=== PATIENT | male | born 1975 | race Two or more races ===

== ENCOUNTER 2024-12-30 13:52 | Outpatient (AMB) | payer BC, MEDICAID, SELFPAY ==
[2024-12-30 14:05] VITALS: BP 127/85; PULSE 73; RESP 19; TEMP 36.6; O2SAT 94; BMI 41.3
--- NOTE | 2024-12-30 14:05 | ORTHONT_ITS ---
Vital signs 12/30/24 14:05 Height 1.68 m Height Method Stated Weight 116.318 kg Weight Measurement Method Standing Scale BMI 41.3 BP 127/85 H Blood Pressure Source Automatic Cuff Blood Pressure Location Right Upper Arm Position Sitting Respiration 19 Pulse 73 Pulse Source Monitor Temp 97.8 F Temp Source Temporal Artery Scan Pulse Oximetry (%) 94 L Oxygen Delivery Method Room Air Med/Allergies Allergies & Medications Allergies No Known Allergies Allergy (Verified 12/30/24 14:06) Medication Reconciliation atorvastatin 20 mg tablet 20 mg PO DAILY 03/19/21 [History Confirmed 12/30/24] lisinopril 20 mg-hydrochlorothiazide 12.5 mg tablet 1 tab PO DAILY 03/19/21 [History Confirmed 12/30/24] metformin 500 mg tablet 500 mg PO DAILY 03/19/21 [History Confirmed 12/30/24] Exam Exam Breathing is nonlabored. Patient has a normal mood and affect. Bilateral extremities were evaluated and demonstrates sensation intact to light touch. Palpable pedal pulses are present. No significant edema is present. Bilateral hips were examined. The patient has no pain with log roll of the hips. Internal rotation to 30 degrees and external rotation to 30 degrees is painless. Negative FADIR. Left knee was examined today. The left knee is in reasonable alignment. Range of motion from 0-120 degrees. Knee is stable to varus and valgus as well as AP translation with <5mm. Patient has a negative McMurrays. There is no pain with patellofemoral compression and no crepitus noted. The knee is nontender to palpation. The right knee was also examined. The right knee is in varus alignment. Range of motion from 0-115 degrees. Knee is stable to varus and valgus as well as AP translation with <5mm. Patient has a negative McMurrays. There is no pain with patellofemoral compression and no crepitus noted. The knee is tender to palpation medially. An MRI from [facility] was reviewed by me today. This demonstrates severe degeneration of the medial compartment as well as degenerative changes of the meniscus Assessment and Plan Problem List (1) Arthritis of right knee: Status: Acute Plan: Patient is a pleasant 49-year-old male with right knee pain and right knee arthritis. We will need weightbearing x-rays as we only have an MRI. We have discussed different treatment options depending on what that shows. 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 Intake Visit Data Collection New Patient or Established: New Patient not seen in past 3 years at [facility] (considered New) Reason for Visit:: right knee pain Seen by Clinical Staff ONLY (RN/MA): No Verbal consent obtained for Telemed visit?: No Hat And Cap Drying Room Attendant Required: No PCP or OBGYN visit in last 3 months: Yes Hx Now: No Do You Feel Safe at Home: Yes Authorities Contacted: N/A Questionairres Past Medical History Past Medical History Have you ever been diagnosed with any of the following: Neurological Problems Cerebrovascular Accident (CVA): No Transient Ischemic Attacks (TIA): No Dementia: No Brain Tumor: No Meningitis: No Seizures: No Epilepsy: No Multiple Sclerosis: No Cerebral Palsy: No Guillain-[place] Syndrome: No Spina Bifida: No Paralysis: No Peripheral Neuropathy: No Gallego's Palsy: No Migraine: No Head Trauma: No Traumatic Brain Injury: No Cardiology Problems Myocardial Infarction: No Cardiac Arrhythmia: No Heart Murmur: No Coronary Artery Disease: No Hypercholesterolemia: Yes Congestive Heart Failure: No Valvular Heart Disease: No Cardiomyopathy: No Edema: No Pericarditis: No Cellulitis: No Deep Vein Thrombosis: No Hypertension: Yes Hypotension: No Varicose Veins: Yes (RIGHT LEG VARICOSE VEINS) Respiratory Problems Chronic Obstructive Pulmonary Disease (COPD): No Asthma: No Bronchitis: No Emphysema: No Pneumonia: No Pulmonary Fibrosis: No Tuberculosis: No Pulmonary Embolism: No Pulmonary Edema: No Sleep Apnea: No Stomache/Intestinal Problems Hepatitis: No Cirrhosis: No Pancreatitis: No Celiac Disease: No Gall Bladder Disease: No Gastrointestinal Bleed: No Esophageal Varices: No Delgado's Esophagus: No Colitis: No Ulcerative Colitis: No Diverticulitis: No Diverticulosis: No Ulcer: No Irritable Bowel: Yes (2018) Crohn's Disease: No Obstructive Bowel: No Hiatal Hernia: Yes (umbilical hernia 2009-repaired) Hemorrhoids: No Gastroesophageal Reflux Disease: Yes Obesity: Yes Genital/Urinary Problems Renal Disease: No Kidney Stones: No Polycystic Kidney Disease: No Neurogenic Bladder: No Inguinal Hernia: No Dialysis: No Benign Prostatic Hyperplasia: No Reproductive Problems Testicular Cancer: No Musculoskeletal Problems Rheumatoid Arthritis: Yes (SINCE AGE 14) Osteoporosis: No Degenerative Disk Disease: No Gout: Yes Scoliosis: No Carpal Tunnel Syndrome: No Fibromyalgia: No Fractures: No Degenerative Joint Disease: No Osteomyelitis: Yes (X 30 YEARS AGO) Poliovirus: No Head,Eye,Nose,Throat Problems Cataracts: No Glaucoma: No Blind: No Retinal Detachment: No Macular Degeneration: No Chronic Ear Infections: No Deafness: No Eye Prosthesis: No Endocrine Problems Diabetes Mellitus Type 1: No Diabetes Mellitus Type 2: Yes (TAKES PO MED TYPE II) Hypoglycemia: No [place]'s Syndrome: No Andreas's Disease: No Hyperthyroidism: No Hypothyroidism: No Parathyroid Disease: No Pituitary Disease: No Systemic Lupus Erythematosus: No Syndrome of Inappropriate Antidiuretic Hormone: No Adrenal Disease: No Graves' Disease: No Psychologic Problems Schizophrenia: No Depression: No Anxiety: No Behavior Problems: No Self-Mutilation: No Attention Deficit Disorder: No Attention Deficit Hyperactivity Disorder: No Post Traumatic Stress Disorder: No Other Problems Hospitalization: No Down Syndrome: No Autism: No Developmental Delay: No Shingles: No Falls: Yes (DEC 20 2020 FELL IN YARD OFF THE LADDER) Blood Transfusions: No Blood Transfusion Reaction: No Anesthesia Reactions: No Organ Transplant: No Chemotherapy: No MRSA: No VRSA: No Vancomycin-Resistant Enterococci: No Human Immunodeficiency Virus (HIV): No Chicken Pox: No Measles: No Mumps: No Rubella (Lao Measles): No Pertussis: No Cancer: No Surgical History Carotid Endarterectomy: No Valve Replacement: No Pacemaker: No Thyroidectomy: No Subjective Visit Visit for: follow up visit and knee Immunization / Flu Flu Vaccine in the Last 12 Months: No Flu Vaccine Exclusion Criteria: No Exclusion Criteria History of Present Illness Chief complaint: right knee pain Date of injury / onset of symptoms: october 2024 Ignacio is a pleasant 49-year-old male with a prior arthroscopic meniscectomy [address] Garcia. He had a recent twisting injury in October and this now. The right knee is been bothering him particular in the medial aspect of the knee. Is some difficulty particularly at the end of the day. He has had prior injections in the past but it has been a while. 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
== END 2024-12-30 14:43 | disposition home or self-care (01) ==
PROVIDERS: PCP Nurse Practitioner Family; Referring Provider Nurse Practitioner Family; Supervising Provider Orthopaedic Surgery Adult Reconstructive Orthopaedic Surgery; Visit Provider Orthopaedic Surgery Adult Reconstructive Orthopaedic Surgery
DX: M17.11 Unilateral primary osteoarthritis, right knee (principal); M25.561 Pain in right knee; I10 Essential (primary) hypertension; E78.00 Pure hypercholesterolemia, unspecified; E11.9 Type 2 diabetes mellitus without complications; K21.9 Gastro-esophageal reflux disease without esophagitis
CPT/HCPCS: 99203; G0463

== ENCOUNTER → 2024-12-30 | Outpatient (CLI) | payer BC, MEDICAID, SELFPAY ==
--- NOTE | 2024-12-30 15:43 | XR_ITS ---
Examination: Right knee 4 views Technique: AP oblique lateral axial right knee 4 views Exam date and time: 02/27/2025 1626 hrs. Indications: Right knee pain osteoarthritis 3 years. Findings: Moderate to advanced tricompartment osteoarthritis, including medial and patellofemoral joints No fracture No patellar dislocation Impression: Moderate to advanced tricompartment osteoarthritis, including advanced narrowing medial and patellofemoral joints
== END | disposition home or self-care (01) ==
PROVIDERS: PCP Orthopaedic Surgery Adult Reconstructive Orthopaedic Surgery; Referring Provider Orthopaedic Surgery Adult Reconstructive Orthopaedic Surgery; Visit Provider Orthopaedic Surgery Adult Reconstructive Orthopaedic Surgery
DX: M17.11 Unilateral primary osteoarthritis, right knee (principal); M25.861 Other specified joint disorders, right knee
CPT/HCPCS: 73564

== ENCOUNTER 2025-01-12 14:36 | Outpatient (AMB) | payer BC, MEDICAID, SELFPAY ==
--- NOTE | 2025-01-12 14:29 | PD.ORTHTELE ---
Med/Allergies Allergies & Medications Allergies No Known Allergies Allergy (Verified 01/12/25 14:29) Medication Reconciliation atorvastatin 20 mg tablet 20 mg PO DAILY 03/19/21 [History Confirmed 01/12/25] lisinopril 20 mg-hydrochlorothiazide 12.5 mg tablet 1 tab PO DAILY 03/19/21 [History Confirmed 01/12/25] metformin 500 mg tablet 500 mg PO DAILY 03/19/21 [History Confirmed 01/12/25] Subjective Visit Visit for: follow up visit and x-rays Immunization / Flu Flu Vaccine in the Last 12 Months: No Flu Vaccine Exclusion Criteria: No Exclusion Criteria History of Present Illness Chief complaint: F/U XRAYS TELEMED This is a telephone visit. He has severe right knee arthritis primarily in the medial compartment. He reports that the pain is miserable. He has had injections in the past and anti-inflammatories. He reports is very difficult to work because of the pain. He has not had an injection a while. We just discussed that we can do a knee injection if we need to. We also discussed that he needs to lose weight if possible. Pain Pain level (0-10): 5 Ambulatory data Ambulatory device: none Treatments Improvement with previous injections: No Improvement with PT: No Improvement with NSAIDS: no Review of Systems Review of Systems: All systems negative unless otherwise noted in HPI. Assessment and Plan Problem List (1) Arthritis of right knee: Status: Acute Plan: Patient is a pleasant 49-year-old male with right knee pain and right knee arthritis. X-rays demonstrate severe arthritis of the right knee. We thus discussed total knee replacement as a reasonable option. Office Procedures GNS Level of Care Nursing/Assessment Patient Status: Established Patient Nursing Assessment/Reassesment: Medication Reconciliation, Update PMH in EMR and Vital Signs Coordination of Care: Complex Care and Chronic Disease 1-5, Education Complex Pt/Fam, Consent,records obtained, informed consent, 1 Ins Authorization, Results/Orders obtained and Staff clarify orders Established Patient Charge Established Patient Point Assignment: 110 Established Patient Point Charge: EP Level 3 (80-115)
== END 2025-01-12 14:46 | disposition home or self-care (01) ==
LOC: HODSRG 14:36
PROVIDERS: PCP Nurse Practitioner Family; Referring Provider Nurse Practitioner Family; Supervising Provider Orthopaedic Surgery Adult Reconstructive Orthopaedic Surgery; Visit Provider Orthopaedic Surgery Adult Reconstructive Orthopaedic Surgery
DX: M17.11 Unilateral primary osteoarthritis, right knee (principal); M25.561 Pain in right knee
CPT/HCPCS: 99213; G0463

== ENCOUNTER 2025-01-17 13:16 | Outpatient (AMB) | payer BC, MEDICAID, SELFPAY ==
--- NOTE | 2025-01-17 13:32 | PD.ORTHCLVIS ---
Vital signs 01/17/25 13:33 Height 1.68 m Height Method Stated Weight 115.723 kg Weight Measurement Method Standing Scale BMI 41.0 BP 132/87 H Blood Pressure Source Automatic Cuff Blood Pressure Location Left Upper Arm Position Sitting Respiration 18 Pulse 5 L Pulse Source Monitor Temp 98.2 F Temp Source Temporal Artery Scan Pulse Oximetry (%) 97 Oxygen Delivery Method Room Air Med/Allergies Allergies & Medications Allergies No Known Allergies Allergy (Verified 01/17/25 13:34) Medication Reconciliation atorvastatin 20 mg tablet 20 mg PO DAILY 03/19/21 [History Confirmed 01/17/25] lisinopril 20 mg-hydrochlorothiazide 12.5 mg tablet 1 tab PO DAILY 03/19/21 [History Confirmed 01/17/25] metformin 500 mg tablet 500 mg PO DAILY 03/19/21 [History Confirmed 01/17/25] meloxicam 7.5 mg tablet 7.5 mg PO QDAY #45 tabs 01/12/25 [Rx Confirmed 01/17/25] Exam Exam Breathing is nonlabored. Patient has a normal mood and affect. Bilateral extremities were evaluated and demonstrates sensation intact to light touch. Palpable pedal pulses are present. No significant edema is present. Bilateral hips were examined. The patient has no pain with log roll of the hips. Internal rotation to 30 degrees and external rotation to 30 degrees is painless. Negative FADIR. Left knee was examined today. The left knee is in reasonable alignment. Range of motion from 0-120 degrees. Knee is stable to varus and valgus as well as AP translation with <5mm. Patient has a negative McMurrays. There is no pain with patellofemoral compression and no crepitus noted. The knee is nontender to palpation. The right knee was also examined. The right knee is in varus alignment. Range of motion from 0-115 degrees. Knee is stable to varus and valgus as well as AP translation with <5mm. Patient has a negative McMurrays. There is no pain with patellofemoral compression and no crepitus noted. The knee is tender to palpation medially. An MRI from [place] was reviewed by me today. This demonstrates severe degeneration of the medial compartment as well as degenerative changes of the meniscus On MRI. X-rays of the right knee demonstrate varus alignment significant degeneration with complete obliteration of the medial joint space. Assessment and Plan Problem List (1) Arthritis of right knee: Status: Acute Plan: Patient is a pleasant 49-year-old male with right knee pain and right knee arthritis. The patient has significant arthritis in the right knee especially of the medial compartment. We discussed nonoperative versus operative management. We will start with a cortisone injection and continued anti-inflammatories. He reports that his work has no modified duty which may be make it difficult with his pre-existing condition. We discussed with him that I would recommend continue conservative treatment but he may ultimately need total knee replacement as he has [id number] arthritis. Office Procedures GNS Level of Care Nursing/Assessment Patient Status: Established Patient Nursing Assessment/Reassesment: Medication Reconciliation, Update PMH in EMR and Vital Signs Coordination of Care: Complex Care and Chronic Disease 1-5, Education Complex Pt/Fam, Consent,records obtained, informed consent, Results/Orders obtained and Staff clarify orders Established Patient Charge Established Patient Point Assignment: 95 Established Patient Point Charge: EP Level 3 (80-115) Surgical Proc/IM SQ injection Major Surgical Procedure: Yes (RIGHT KNEE INJECTION) Medication Given Medication Given Medication Given: Yes Documented Dose Given: 4 Route: Infiitration Medication Given Medication Given Medication Given: Yes Documented Dose Given: 1 Route: Infiitration Office Meds Xylocaine 10 mg/mL (1 %) injection solution Performing Provider: Pascual Aguilar MD Performing Location: [facility] Administered by: Pascual Aguilar MD on 01/17/25 13:57 Dose Route Admin Location Dispensed Lot Number Expiration Date FORMERLY NAMED [facility] [employer] 20 mL Infiltration 20 mL [id number] 05/22/28 94156-009-58 [facility] triamcinolone acetonide 40 mg/mL suspension for injection Performing Provider: Pascual Aguilar MD Performing Location: [facility] Administered by: Pascual Aguilar MD on 01/17/25 13:57 Dose Route Admin Location Dispensed Lot Number Expiration Date FORMERLY NAMED [facility] [employer]ant 40 mg Infiltration KNEE 1 mL [id number] 04/21/26 1777-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 within 3 years) Reason for Visit:: RIGHT KNEE INJECTION Seen by Clinical Staff ONLY (RN/MA): No Verbal consent obtained for Telemed visit?: No Comb Winder Required: No PCP or OBGYN visit in last 3 months: Yes Hx Now: No Do You Feel Safe at Home: Yes Authorities Contacted: N/A Questionairres Past Medical History Past Medical History Have you ever been diagnosed with any of the following: Neurological Problems Cerebrovascular Accident (CVA): No Transient Ischemic Attacks (TIA): No Dementia: No Brain Tumor: No Meningitis: No Seizures: No Epilepsy: No Multiple Sclerosis: No Cerebral Palsy: No Guillain-[place] Syndrome: No Spina Bifida: No Paralysis: No Peripheral Neuropathy: No Gallego's Palsy: No Migraine: No Head Trauma: No Traumatic Brain Injury: No Cardiology Problems Myocardial Infarction: No Cardiac Arrhythmia: No Heart Murmur: No Coronary Artery Disease: No Hypercholesterolemia: Yes Congestive Heart Failure: No Valvular Heart Disease: No Cardiomyopathy: No Edema: No Pericarditis: No Cellulitis: No Deep Vein Thrombosis: No Hypertension: Yes Hypotension: No Varicose Veins: Yes (RIGHT LEG VARICOSE VEINS) Respiratory Problems Chronic Obstructive Pulmonary Disease (COPD): No Asthma: No Bronchitis: No Emphysema: No Pneumonia: No Pulmonary Fibrosis: No Tuberculosis: No Pulmonary Embolism: No Pulmonary Edema: No Sleep Apnea: No Stomache/Intestinal Problems Hepatitis: No Cirrhosis: No Pancreatitis: No Celiac Disease: No Gall Bladder Disease: No Gastrointestinal Bleed: No Esophageal Varices: No Delgado's Esophagus: No Colitis: No Ulcerative Colitis: No Diverticulitis: No Diverticulosis: No Ulcer: No Irritable Bowel: Yes (2018) Crohn's Disease: No Obstructive Bowel: No Hiatal Hernia: Yes (umbilical hernia 2009-repaired) Hemorrhoids: No Gastroesophageal Reflux Disease: Yes Obesity: Yes Genital/Urinary Problems Renal Disease: No Kidney Stones: No Polycystic Kidney Disease: No Neurogenic Bladder: No Inguinal Hernia: No Dialysis: No Benign Prostatic Hyperplasia: No Reproductive Problems Testicular Cancer: No Musculoskeletal Problems Rheumatoid Arthritis: Yes (SINCE AGE 14) Osteoporosis: No Degenerative Disk Disease: No Gout: Yes Scoliosis: No Carpal Tunnel Syndrome: No Fibromyalgia: No Fractures: No Degenerative Joint Disease: No Osteomyelitis: Yes (X 30 YEARS AGO) Poliovirus: No Head,Eye,Nose,Throat Problems Cataracts: No Glaucoma: No Blind: No Retinal Detachment: No Macular Degeneration: No Chronic Ear Infections: No Deafness: No Eye Prosthesis: No Endocrine Problems Diabetes Mellitus Type 1: No Diabetes Mellitus Type 2: Yes (TAKES PO MED TYPE II) Hypoglycemia: No Jonathan's Syndrome: No Andreas's Disease: No Hyperthyroidism: No Hypothyroidism: No Parathyroid Disease: No Pituitary Disease: No Systemic Lupus Erythematosus: No Syndrome of Inappropriate Antidiuretic Hormone: No Adrenal Disease: No Graves' Disease: No Psychologic Problems Schizophrenia: No Depression: No Anxiety: No Behavior Problems: No Self-Mutilation: No Attention Deficit Disorder: No Attention Deficit Hyperactivity Disorder: No Post Traumatic Stress Disorder: No Other Problems Hospitalization: No Down Syndrome: No Autism: No Developmental Delay: No Shingles: No Falls: Yes (DEC 20 2020 FELL IN YARD OFF THE LADDER) Blood Transfusions: No Blood Transfusion Reaction: No Anesthesia Reactions: No Organ Transplant: No Chemotherapy: No MRSA: No VRSA: No Vancomycin-Resistant Enterococci: No Human Immunodeficiency Virus (HIV): No Chicken Pox: No Measles: No Mumps: No Rubella ([place] Measles): No Pertussis: No Cancer: No Surgical History Carotid Endarterectomy: No Valve Replacement: No Pacemaker: No Thyroidectomy: No Subjective Visit Visit for: follow up visit, knee (RIGHT) and injections Immunization / Flu Flu Vaccine in the Last 12 Months: No Flu Vaccine Exclusion Criteria: No Exclusion Criteria History of Present Illness Chief complaint: right knee pain Date of injury / onset of symptoms: october 2024 Ignacio is a pleasant 49-year-old male with a prior arthroscopic meniscectomy [address] Garcia. He had a recent twisting injury in October and this now. The right knee is been bothering him particular in the medial aspect of the knee. Is some difficulty particularly at the end of the day. He has had prior injections in the past but it has been a while. 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
[2025-01-17 13:33] VITALS: BP 132/87; PULSE 5; RESP 18; TEMP 36.8; O2SAT 97; BMI 41.0
== END 2025-01-17 14:16 | disposition home or self-care (01) ==
PROVIDERS: PCP Nurse Practitioner Family; Referring Provider Nurse Practitioner Family; Supervising Provider Orthopaedic Surgery Adult Reconstructive Orthopaedic Surgery; Visit Provider Orthopaedic Surgery Adult Reconstructive Orthopaedic Surgery
DX: M17.11 Unilateral primary osteoarthritis, right knee (principal); M25.561 Pain in right knee; I10 Essential (primary) hypertension; E11.9 Type 2 diabetes mellitus without complications; E78.00 Pure hypercholesterolemia, unspecified; K21.9 Gastro-esophageal reflux disease without esophagitis
CPT/HCPCS: 99213; J3301; J3490; G0463